=== PATIENT | female | born 1980 ===

== ENCOUNTER 2018-11-27 08:47 | Day surgery (SDC) | payer OTHER | END 2018-11-27 18:00 | disposition home or self-care (01) | LOC: CIR.AMB 08:47 | DX: N84.0 Polyp of corpus uteri (principal) ==

== ENCOUNTER 2021-07-29 07:00 | Inpatient (IN) | payer OTHER ==
[~2021-07-29] VITALS: Ht 177.8 cm; Wt 137.9 kg
[2021-07-29] MEDS ORDERED: FERROCHEL PO (08:34)
== END 2021-08-05 10:26 | disposition home or self-care (01) | DRG 743 ==
LOC: SURH 07:00 → O/R 08-03 08:22 → SURH 08-03 11:15 → OB/GYN 08-03 16:13
PROVIDERS: ADMIT Obstetrics & Gynecology; ATTEND Obstetrics & Gynecology
PROC: 0UT50ZZ Resection of Right Fallopian Tube, Open Approach (ICD-10-PCS; 2021-08-03)
PROC: 0UT90ZL Resection of Uterus, Supracervical, Open Approach (ICD-10-PCS; principal; 2021-08-03 11:15)
DX: D25.1 Intramural leiomyoma of uterus (principal); D25.0 Submucous leiomyoma of uterus; D25.2 Subserosal leiomyoma of uterus